=== PATIENT | male | born 1945 | race Caucasian/White ===

== ENCOUNTER 2016-03-06 20:27 | Inpatient (IN) | payer MEDICARE ==
[~2016-03-06] VITALS: Ht 182.9 cm; Wt 57.0 kg
[2016-03-06] MEDS ORDERED: SODIUM CHLORIDE 0.9% 1,000 ML ONE (22:52)
[2016-03-06] MEDS ORDERED: SALINE FLUSH 10 ML FLUSH PRN (23:10)
[2016-03-06] MEDS ORDERED: BISACODYL 10 MG SUPP RECTAL PRN (23:10)
[2016-03-06] MEDS ORDERED: BISACODYL EC 5 MG TAB PO PRN (23:10)
[2016-03-06] MEDS ORDERED: ALU/MAG/SIM 30 ML UDC PO PRN (23:10)
[2016-03-06] MEDS ORDERED: MAG HYDROX 30 ML UDC PO PRN (23:10)
[2016-03-06] MEDS ORDERED: FOLIC ACID INJ 1 MG in SODIUM CHLORIDE 0.9% 50 ML IV ONE (23:20)
[2016-03-06] MEDS ORDERED: LORAZEPAM 2 MG/ML VIAL IV PRN (23:20)
[2016-03-06] MEDS: THIAMINE 100 MG in SODIUM CHLORIDE 0.9% 50 ML IV SCH (23:36)
[2016-03-07] VITALS (10 sets, daily range): BP systolic 110–138; RESP 16–18; TEMP 97.5–98.6; Ht 182.9 cm; Wt 57.0 kg
[2016-03-07] MEDS: LACT RINGERS 1,000 ML IV SCH ×2 (01:58→15:55)
[2016-03-07] MEDS: SODIUM CHLORIDE 0.9% FLUSH BAG 500 ML IV SCH (05:56)
[2016-03-07] MEDS: SALINE FLUSH 10 ML FLUSH SCH ×2 (08:00→20:00)
[2016-03-07] MEDS: MULTIVITAMINS PO SCH (09:00)
[2016-03-07] MEDS ORDERED: ENOXAPARIN 30 MG/0.3 ML SYR SUBQ SCH (09:00)
[2016-03-07] MEDS: ENOXAPARIN 30 MG/0.3 ML SYR SUBQ SCH (09:00)
[2016-03-07] MEDS: THIAMINE 100 MG in SODIUM CHLORIDE 0.9% 50 ML IV SCH (10:09)
[2016-03-07] MEDS: SODIUM CHLORIDE 0.9% 1,000 ML IV SCH (18:26)
[2016-03-08] MEDS: SODIUM CHLORIDE 0.9% 1,000 ML IV SCH ×3 (03:42→20:56)
[2016-03-08 04:10] VITALS: BP_SYST 133; RESP 16; TEMP 98.1
[2016-03-08] MEDS: SODIUM CHLORIDE 0.9% FLUSH BAG 500 ML IV SCH (05:32)
[2016-03-08 07:32] VITALS: BP_SYST 125; RESP 18; TEMP 98.3
[2016-03-08] MEDS: SALINE FLUSH 10 ML FLUSH SCH ×2 (08:00→20:00)
[2016-03-08] MEDS: THIAMINE 100 MG in SODIUM CHLORIDE 0.9% 50 ML IV SCH (08:41)
[2016-03-08] MEDS: ENOXAPARIN 30 MG/0.3 ML SYR SUBQ SCH (08:42)
[2016-03-08] MEDS: MULTIVITAMINS PO SCH (08:42)
[2016-03-08 11:36] VITALS: BP_SYST 120; RESP 18; TEMP 98.1
[2016-03-08] MEDS: CEFTRIAXONE 1 GM in SODIUM CHLORIDE 0.9% 50 ML IV SCH (11:56)
[2016-03-08 15:31] VITALS: BP_SYST 124; RESP 18; TEMP 98.2
[2016-03-08 19:24] VITALS: BP_SYST 132; RESP 16; TEMP 98.9
[2016-03-08 22:04] VITALS: BP_SYST 131; RESP 16; TEMP 98.4
[2016-03-09] MEDS: SODIUM CHLORIDE 0.9% FLUSH BAG 500 ML IV SCH (05:44)
[2016-03-09] MEDS: SODIUM CHLORIDE 0.9% 1,000 ML IV SCH (06:01)
[2016-03-09 07:00] VITALS: BP_SYST 125; RESP 16; TEMP 98.5
[2016-03-09] MEDS: SALINE FLUSH 10 ML FLUSH SCH ×2 (08:00→20:00)
[2016-03-09] MEDS: CEFTRIAXONE 1 GM in SODIUM CHLORIDE 0.9% 50 ML IV SCH (08:12)
[2016-03-09] MEDS: THIAMINE 100 MG in SODIUM CHLORIDE 0.9% 50 ML IV SCH (08:12)
[2016-03-09] MEDS: MULTIVITAMINS PO SCH (08:13)
[2016-03-09] MEDS: ENOXAPARIN 30 MG/0.3 ML SYR SUBQ SCH (08:13)
[2016-03-09 11:20] VITALS: BP_SYST 134; RESP 16; TEMP 98.4
[2016-03-09 14:00] VITALS: BP_SYST 128; RESP 16; TEMP 97.8
[2016-03-09 15:00] VITALS: BP_SYST 116; RESP 16; TEMP 97.6
[2016-03-09] MEDS ORDERED: BENZOCAINE 20% MM PRN (19:25)
[2016-03-09 20:07] VITALS: BP_SYST 134; RESP 20; TEMP 98.3
[2016-03-09] MEDS: GELCLAIR 15 ML GEL TOPICAL SCH (20:55)
[2016-03-09 23:38] VITALS: BP_SYST 122; RESP 16; TEMP 98.4
[2016-03-10 04:08] VITALS: BP_SYST 124; RESP 18; TEMP 98.3
[2016-03-10] MEDS: SODIUM CHLORIDE 0.9% FLUSH BAG 500 ML IV SCH (05:52)
[2016-03-10 07:39] VITALS: BP_SYST 128; RESP 18; TEMP 98.7
[2016-03-10] MEDS: ENOXAPARIN 30 MG/0.3 ML SYR SUBQ SCH ×2 (09:00→09:04)
[2016-03-10] MEDS: SALINE FLUSH 10 ML FLUSH SCH ×2 (09:03→21:10)
[2016-03-10] MEDS: MULTIVITAMINS PO SCH (09:04)
[2016-03-10] MEDS: GELCLAIR 15 ML GEL TOPICAL SCH ×3 (09:04→21:10)
[2016-03-10] MEDS: CEFTRIAXONE 1 GM in SODIUM CHLORIDE 0.9% 50 ML IV SCH (09:04)
[2016-03-10] MEDS: THIAMINE 100 MG in SODIUM CHLORIDE 0.9% 50 ML IV SCH (10:28)
[2016-03-10 11:28] VITALS: BP_SYST 128; RESP 18; TEMP 98
[2016-03-10] MEDS: SODIUM CHLORIDE 0.9% 1,000 ML IV SCH ×2 (15:19→23:49)
[2016-03-10 15:44] VITALS: BP_SYST 123; RESP 18; TEMP 97.4
[2016-03-10 19:54] VITALS: BP_SYST 125; RESP 18; TEMP 98.9
[2016-03-10] MEDS ORDERED: ZOLPIDEM 5 MG TAB PO PRN (20:20)
[2016-03-10 23:58] VITALS: BP_SYST 123; RESP 18; TEMP 97.7
[2016-03-11 03:36] VITALS: BP_SYST 122; RESP 18; TEMP 98.5
[2016-03-11] MEDS: SODIUM CHLORIDE 0.9% FLUSH BAG 500 ML IV SCH (06:00)
[2016-03-11] MEDS: GELCLAIR 15 ML GEL TOPICAL SCH (08:02)
[2016-03-11] MEDS: MULTIVITAMINS PO SCH (08:02)
[2016-03-11] MEDS: CEFTRIAXONE 1 GM in SODIUM CHLORIDE 0.9% 50 ML IV SCH (08:02)
[2016-03-11] MEDS: SALINE FLUSH 10 ML FLUSH SCH (08:03)
[2016-03-11] MEDS: ENOXAPARIN 30 MG/0.3 ML SYR SUBQ SCH (08:04)
[2016-03-11 08:14] VITALS: BP_SYST 119; RESP 18; TEMP 97.7
[2016-03-11] MEDS: THIAMINE 100 MG in SODIUM CHLORIDE 0.9% 50 ML IV SCH (09:01)
[2016-03-11 13:00] VITALS: BP_SYST 119; RESP 18; TEMP 97.7
== END 2016-03-11 14:20 | disposition home or self-care (01) | DRG 682 ==
LOC: ENRESERVTM → ENRESERVDT → ER 20:27 → ENPENDDIS 23:07 → EMR 23:07 → 4THE 03-07 00:28
PROVIDERS: ADMIT Hospitalist; ATTEND Hospitalist
DX: N17.9 Acute kidney failure, unspecified (principal); G92 Toxic encephalopathy; N39.0 Urinary tract infection, site not specified; E87.1 Hypo-osmolality and hyponatremia; B96.20 Unspecified Escherichia coli [E. coli] as the cause of diseases classified elsewhere; F10.20 Alcohol dependence, uncomplicated; K12.0 Recurrent oral aphthae; Z28.21 Immunization not carried out because of patient refusal
CPT/HCPCS: 36415; 70450; 71010; 76770; 80047; 80048; 80053; 80061; 80320; 81001; 82248; 82553; 82947; 83735; 83930; 83935; 84100; 84300; 84484; 85014; 85025; 85384; 85610; 85730; 87077; 87088; 87186; 94799; 99223; 99232; 99233; 99238

== ENCOUNTER 2016-03-13 11:03 | Emergency (ER) | payer MEDICARE | END 2016-03-13 12:26 | disposition left against medical advice (07) | LOC: ER 11:03 | DX: Z53.21 Procedure and treatment not carried out due to patient leaving prior to being seen by health care provider (principal) ==

== ENCOUNTER 2016-03-16 10:23 | Emergency (ER) | payer MEDICARE | END 2016-03-16 13:39 | disposition left against medical advice (07) | LOC: ER 10:23 | DX: I50.9 Heart failure, unspecified (principal); R60.0 Localized edema; F17.200 Nicotine dependence, unspecified, uncomplicated | CPT/HCPCS: 36415; 71010; 83880; 85025; 85610; 85730; 93005 ==